=== PATIENT | male | born 1940 | race Caucasian/White ===

== ENCOUNTER 2018-06-15 15:53 | Inpatient (IN) ==
[2018-06-15] MEDS ORDERED: Ondansetron 4 MG/2 ML VIAL IVP PRN (17:50)
[2018-06-15] MEDS ORDERED: *HR* Promethazine 25 MG/ML VIAL IVP PRN (17:50)
[2018-06-15] MEDS ORDERED: traMADol 50 MG TABLET PO PRN (17:50)
[2018-06-15] MEDS ORDERED: Acetaminophen 325 MG TABLET PO PRN (17:50)
[2018-06-15] MEDS ORDERED: Naloxone 0.4 MG/ML INJ IVP PRN (17:50)
[2018-06-15] MEDS ORDERED: Fluticasone Propionate Nasal 50 MCG/SPRAY BOTTLE NS PRN (17:54)
--- NOTE | 2018-06-15 18:27 | Internal Med History&Physical ---
Date of Encounter: 06/15/18 Time of Encounter: 18:19 Internal Medicine - H&P: HPI Chief complaint: Weight loss, failure to thrive Admitted From: Emergency Dept Plans for Post Hospital Care: Home History of present illness: Mr. Kelly is a 78 year old male with known PMH of paroxysmal Aflutter on Xarelto for anti coag, HTN, HLD, Chronic B12 def, Parkinson disease and diastolic CHF pt who presented to [facility] [place] with worsening loss of appetite. significant weight loss 30 lbs in 6 weeks and lower abdomen pain. He does c/o severe weakness, and lethargy. Denied any CP / SOB. Denied any melena / dark colored stool / blood in stool. His CT of Abd showed cholelithiasis but no acute cholecystitis, and colonic mass in the region of the splenic flexure suspicious for malignancy. Patient was transferred to our hospital for further care. Surgery Dr. Valderrama is already consulted by [facility] attending. Past Med Surg Social Fam HX - Past Medical History Medical history: atrial fibrillation, hyperlipidemia, hypertension, other Additional medical history: PARKINSONS Psychiatric history: bipolar - Past Surgical History Surgical History: herniorrhaphy Additional surgical history: SMASH INJURY TO RIGHT THUMB - Social History Smoking Status: Former smoker Smokeless Tobacco Status: No Alcohol use: none Drug use: none - Family History Mother Living Status: Age at : 90 Hx Family Cardiac Disorders: Yes Hx Family Respiratory Disorders: Yes Father History Unknown: Yes Internal Medicine - H&P: Meds Carbidopa/Levodopa ER 50/200 [Sinemet ER 50-200 Tab] 25 - 100 mg PO QID [History] Cartia Xt 120 mg PO DAILY 03/23/16 [History] Divalproex (24 HR) [Depakote ER (24 HR)] 250 mg PO HS 03/23/16 [History] Divalproex (24 HR) [Depakote ER (24 HR)] 500 mg PO BID 03/23/16 [History] Fexofenadine HCl 60 mg PO BID 03/23/16 [History] Fluticasone Propionate Nasal [Flonase] 1 spray NS DAILY PRN 03/23/16 [History] Levothyroxine [Synthroid] 25 mcg PO 0630 03/23/16 [History] Lovastatin [Altoprev] 20 mg PO DAILY 03/23/16 [History] Omeprazole 40 mg PO DAILY 03/23/16 [History] Quetiapine Fumarate [Seroquel] 100 mg PO HS 03/23/16 [History] Rivaroxaban [Xarelto] 20 mg PO 1700 03/23/16 [History] Ascorbate Calcium [Vitamin C] 250 mg PO BID 11/01/17 [History] Cyanocobalamin (Vitamin B-12) [Vitamin B12] 1,000 mcg PO DAILY #30 tablet [Rx] Bumetanide [Bumex] 1 mg PO DAILY #30 tablet 02/16/18 [Rx] Digoxin [Lanoxin] 0.25 mg PO DAILY #30 tablet 02/16/18 [Rx] Potassium Chloride 10 meq PO DAILY #30 tab.er.prt 02/16/18 [Rx] 3 Allergy/AdvReac Type Severity Reaction Status Date / Time latex Allergy Rash Verified 06/15/18 13:59 Penicillins Allergy Difficulty Verified 06/15/18 13:59 Breathing ivp dye Allergy See Uncoded 06/15/18 13:59 Comments All Systems PM: A 10-system review of systems was performed and is negative for pertinent findings except as documented above in the HPI. Review of systems: All the systems are reviewed everything is benign except the systems and symptoms I mentioned in the history of present illness - Constitutional Vitals: Temp Pulse Resp BP Pulse Ox 98.5 F 78 15 108/57 97 06/15/18 17:52 06/15/18 17:52 06/15/18 17:52 06/15/18 17:52 06/15/18 17:52 General appearance: Present: cooperative, A&O X 3, answers questions appropriately Exam: Looks very weak and lethargic - Head Head exam: Present: atraumatic, normal inspection - Neck Neck exam general surgery: Present: supple - Respiratory Respiratory exam: Present: decreased breath sounds. Absent: rales, respiratory distress, rhonchi, wheezes - Cardiovascular Cardiovascular exam: Present: RRR, +S1, +S2. Absent: tachycardia - GI/Abdominal GI/Abdominal exam: Present: normal bowel sounds, soft, tenderness (Lower abdomen region). Absent: distended, guarding, hepatomegaly, rebound, rigid - Extremities Exam Extremities exam: Absent: calf tenderness, pedal edema, tenderness - Back Exam Back exam: Absent: CVA tenderness (L), CVA tenderness (R) - Neurological Exam Neurological exam: Present: alert, oriented X3 - Psychiatric Psychiatric exam: Present: normal affect, normal mood - Skin Skin exam: Absent: rash - Assessment and plan (1) Colonic mass Current Visit: No Status: Acute Assessment and plan: Admit the patient into MedSurg concerning for malignancy NPO after midnight for possible colonoscopy in the morning IV hydration surgery already consulted analgesics as needed symptomatic and supportive care held anticoagulation Xarelto for possible surgical procedure in the morning (2) Failure to thrive Current Visit: Yes Status: Acute Assessment and plan: Mostly due to colonic mass will check pre-albumin, B12, folic acid street light wirer consulted started him on Marinol Qualifiers: Failure to thrive age range: in adult Qualified Code(s): R62.7 - Adult failure to thrive (3) Paroxysmal atrial flutter Current Visit: No Status: Acute Assessment and plan: Rate controlled with the digoxin held anticoagulation Xarelto for possible surgical procedure in the morning (4) Anorexia Current Visit: No Status: Acute (5) Weight loss Current Visit: No Status: Acute (6) Hypertension Current Visit: No Status: Chronic Assessment and plan: Resumed home medication Qualifiers: Hypertension type: essential hypertension Qualified Code(s): I10 - Essential (primary) hypertension (7) Hypothyroidism Current Visit: No Status: Chronic Assessment and plan: Resumed home medication Qualifiers: Hypothyroidism type: unspecified Qualified Code(s): E03.9 - Hypothyroidism , unspecified (8) Parkinson disease Current Visit: Yes Status: Acute Assessment and plan: Stable resumed home medication - Time Spent With Patient Total time spent is greater than 50% in coordination of care (as documented) at patient's floor/unit and/or counseling patient:
[2018-06-15] MEDS ORDERED: 0.9 % Sodium Chloride 1,000 ML IVC SCH (18:30)
[2018-06-15] MEDS ORDERED: FEXOFENADINE HCL 60 MG PO SCH (21:00)
[2018-06-15] MEDS ORDERED: Divalproex (24 HR) 250 MG TABLET PO SCH (21:00)
[2018-06-15] MEDS ORDERED: Divalproex (24 HR) 500 MG TABLET PO SCH (21:00)
[2018-06-15] MEDS: Ascorbic Acid 500 MG TABLET PO SCH (21:03)
[2018-06-15] MEDS: Divalproex (24 HR) 250 MG TABLET PO SCH (21:04)
[2018-06-15] MEDS: Divalproex (24 HR) 500 MG TABLET PO SCH (21:04)
[2018-06-15] MEDS ORDERED: Polyethylene Glycol 3350 255 GM POWDER PO ONE (21:44)
--- NOTE | 2018-06-16 00:21 | General Surgery Consult Note ---
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 Kelly is a 78 year old male with known PMH of paroxysmal Aflutter on Xarelto for anti coag, HTN, HLD, diastolic CHF pt who has experienced unexplained weight loss for the past 3 months. Per the patient he has lost 50lbs unintentially. In addition he simply feels weak. he also also anorexia. No reports of fevers, chills, nausea, vomiting, blood bowel movements/rectal bleeding, nor any signficant pain to suggest obstruction. A CT scan was obtained, which was reviewed and evaluated by me, which demonstrates what could be a mass in the splenic flexure. Surgery was consulted for management recommendations. Of note, the patient has never had a colonoscopy before. Past Med Surg Social Fam HX - Past Medical History Medical history: atrial fibrillation, hyperlipidemia, hypertension, other Additional medical history: PARKINSONS Psychiatric history: bipolar - Past Surgical History Surgical History: herniorrhaphy Additional surgical history: SMASH INJURY TO RIGHT THUMB - Social History Smoking Status: Former smoker Smokeless Tobacco Status: No Alcohol use: none Drug use: none - Family History Mother Living Status: Age at : 90 Hx Family Cardiac Disorders: Yes Hx Family Respiratory Disorders: Yes Father History Unknown: Yes Medications and Allergies Carbidopa/Levodopa ER 50/200 [Sinemet ER 50-200 Tab] 1 tab PO 03/23/16 [History] Divalproex (24 HR) [Depakote ER (24 HR)] 1,000 mg PO HS 03/23/16 [History] Divalproex (24 HR) [Depakote ER (24 HR)] 250 mg PO HS 03/23/16 [History] Fexofenadine HCl 60 mg PO BID 03/23/16 [History] Fluticasone Propionate Nasal [Flonase] 1 spray NS DAILY PRN 03/23/16 [History] Levothyroxine [Synthroid] 25 mcg PO 0630 03/23/16 [History] Lovastatin [Altoprev] 20 mg PO DAILY 03/23/16 [History] Omeprazole 40 mg PO DAILY 03/23/16 [History] Ascorbate Calcium [Vitamin C] 250 mg PO BID 11/01/17 [History] Cyanocobalamin (Vitamin B-12) [Vitamin B12] 1,000 mcg PO DAILY #30 tablet [Rx] Bumetanide [Bumex] 1 mg PO DAILY #30 tablet 02/16/18 [Rx] Digoxin [Lanoxin] 0.25 mg PO DAILY #30 tablet 02/16/18 [Rx] Potassium Chloride 10 meq PO DAILY #30 tab.er.prt 02/16/18 [Rx] Carbidopa/Levodopa [Carbidopa-Levodopa 25-100 Tab] 1 tab PO 06/15/18 [History] Diltiazem HCl [Diltiazem 24Hr Cd] 120 mg PO DAILY 06/15/18 [History] Quetiapine Fumarate [SEROquel] 100 mg PO HS 06/15/18 [History] Rivaroxaban [Xarelto] 20 mg PO 1700 06/15/18 [History] 3 Allergy/AdvReac Type Severity Reaction Status Date / Time latex Allergy Rash Verified 06/15/18 13:59 Penicillins Allergy Difficulty Verified 06/15/18 13:59 Breathing ivp dye Allergy See Uncoded 06/15/18 13:59 Comments Review of Systems All systems PM: 12 point ROS negative besides HPI findings. General Surgery Exam Initial Vital Signs Pulse Resp BP Pulse Ox 45 18 100/49 97 06/15/18 11:05 06/15/18 11:05 06/15/18 11:05 06/15/18 11:05 - General physical appearance no distress, chronically ill - Eyes normal ocular movement - ENT CN 2-12 grossly intact - Neck no masses - Respiratory normal expansion, normal respiratory effort - Cardiovascular Cardiovascular exam: Present: RRR - Abdomen Abdomen general surgery: Present: soft, non tender - Integumentary Integumentary general surgery: Present: warm and dry - Neurologic Present: CN 2-12 grossly intact - Musculoskeletal Present: normal posture - Psychiatric Psychiatric general surgery: Present: A&Ox3 Exam Initial Vital Signs Pulse Resp BP Pulse Ox 45 18 100/49 97 06/15/18 11:05 06/15/18 11:05 06/15/18 11:05 06/15/18 11:05 Results - Labs All other labs normal. - Imaging CT scan - abdomen: report reviewed, image reviewed CT scan - pelvis: report reviewed, image reviewed Consult Discharge Plan - Plan Referrals: Maryan Quinonez, ADVERTISING DESIGNER [Primary Care Provider] -
[2018-06-16 04:50] LABS: Hematocrit 40.3 % (37.5-50.1); Hemoglobin 13.8 g/dL (12.9-16.9); Mean Corpuscular HGB Conc 34.2 g/dL (31.6-35.5); Mean Corpuscular Hemoglobin 34.9 pg (28.0-33.3); Mean Platelet Volume 10.1 fL (9.4-12.4); Platelet Count 146 K/mcL (140-400); Red Blood Count 3.95 M/mcL (4.19-5.50); Red Cell Distribution Width 13.3 % (11.5-14.5)
[2018-06-16 04:56] LABS: INR 1.1; Prothrombin Time 12.2 Seconds (9.4-12.1)
[2018-06-16 05:09] LABS: Prealbumin 7.3 mg/dL (17.0-34.0)
[2018-06-16 05:16] LABS: Alanine Aminotransferase < 3 Units/L (7-52); Albumin 3.1 g/dL (3.5-5.7); Albumin/Globulin Ratio 1.3 (1.1-2.2); Alkaline Phosphatase 51 Units/L (34-104); Aspartate Amino Transferase 10 Units/L (13-39); BUN/Creatinine Ratio 22 (6-26); Bilirubin,Total 0.6 mg/dL (0.3-1.0); Blood Urea Nitrogen 15 mg/dL (8-23); Calcium 8.3 mg/dL (8.6-10.3); Carbon Dioxide 40 mEq/L (23-29); Chloride 93 mEq/L (98-107); Chol/HDL Ratio 3.8 (0-4.9); Cholesterol 122 mg/dL (< 200); Globulin 2.4 g/dL (2.4-3.5); Glucose 139 mg/dL (70-105); HDL Cholesterol 32 mg/dL (40-59); LDL Cholesterol,Calculated 68 mg/dL (0-99); Osmolality,Calculated 289 (280-300); Phosphorous 2.7 mg/dL (2.7-4.5); Sodium 138 mEq/L (136-145); Total Protein 5.5 g/dL (6.4-8.9); Triglycerides 112 mg/dL (< 150); eGFR For Non-African Americans > 60 (> 60)
[2018-06-16 05:32] LABS: Folate 11.2 ng/mL (3.0-16.0)
[2018-06-16] MEDS: Levothyroxine 25 MCG TABLET PO SCH (06:41)
[2018-06-16] MEDS ORDERED: Diltiazem CD (24hr) 120 MG CAPSULE PO SCH (09:00)
[2018-06-16] MEDS ORDERED: *HR* Digoxin 0.25 MG TABLET PO SCH (09:00)
[2018-06-16] MEDS: Loratadine 10 MG TABLET PO SCH (09:38)
[2018-06-16] MEDS: Ascorbic Acid 500 MG TABLET PO SCH ×2 (09:38→20:25)
[2018-06-16] MEDS: Cyanocobalamin (B-12) 1,000 MCG TABLET PO SCH (09:38)
--- NOTE | 2018-06-16 16:54 | Internal Med Progress Note ---
Hospitalist Progress Note - Encounter Date of Encounter: 06/16/18 Time of Encounter: 11:00 - Subjective Interval History: Pt was seen and examined at bed side. He still feels very weak and lethargic. Denied any CP. - Exam Vitals: Temp Pulse Resp BP Pulse Ox 98.9 F 53 20 106/67 95 06/16/18 14:23 06/16/18 14:23 06/16/18 14:23 06/16/18 14:23 06/16/18 14:23 Exam: Looks very weak and lethargic Gen: Alert, awake, Oriented to time,place and person Chest: Diminished breath sounds B/L, No wheezing, No crackles, No rales Heart: S1S2+ RRR No murmurs Abd: Soft, NT, BS +, No organomegaly Ext: No edema, pulses are palpable, No calf tenderness Neuro : Benign findings Skin: No rash. - Assessment and Plan (1) Colonic mass Current Visit: No Status: Inactive Assessment and Plan: concerning for malignancy NPO Scheduled for colonoscopy in the morning IV hydration surgery on board analgesics as needed symptomatic and supportive care held anticoagulation Xarelto for possible surgical procedure in the morning (2) Failure to thrive Current Visit: Yes Status: Acute Assessment and Plan: Mostly due to colonic mass B12 and folic acid - WNL Pre albumin - 7.3 shingle cutter consulted started him on Marinol (3) Paroxysmal atrial flutter Current Visit: No Status: Acute Assessment and Plan: held digoxin since he is in sinus andrae cont on tele held anticoagulation Xarelto for possible surgical procedure in the morning (4) Anorexia Current Visit: No Status: Inactive (5) Weight loss Current Visit: No Status: Inactive (6) Hypertension Current Visit: No Status: Chronic Assessment and Plan: Held home medication since his BP running low (7) Hypothyroidism Current Visit: No Status: Chronic Assessment and Plan: Resumed home medication (8) Parkinson disease Current Visit: Yes Status: Acute Assessment and Plan: Stable resumed home medication (9) Bradycardia Current Visit: Yes Status: Acute Assessment and Plan: checked dig level - 1.6 cont on tele for now cont close monitoring - Time Spent with Patient Total time spent is greater than 50% in coordination of care (as documented) at patient's floor/unit and/or counseling patient: Internal Medicine: Result - Labs CBC & Chem 7: 06/16/18 04:34 08/24/18 04:34 Labs: Short CBC 06/16/18 Range/Units 04:34 WBC 7.7 (4.3-11.1) K/mcL Hgb 13.8 (12.9-16.9) g/dL Hct 40.3 (37.5-50.1) % Plt Count 146 (140-400) K/mcL BMP 06/16/18 04:34 Sodium 138 Potassium 3.0 L Chloride 93 L Carbon Dioxide 40 H* BUN 15 Creatinine 0.69 L Glucose 139 H Calcium 8.3 L Liver Function 06/16/18 Range/Units 04:34 Total Bilirubin 0.6 (0.3-1.0) mg/dL AST 10 L (13-39) Units/L ALT < 3 L (7-52) Units/L Alkaline Phosphatase 51 (34-104) Units/L Albumin 3.1 L (3.5-5.7) g/dL - ABG Interpretation ABG results: PT/INR, D-dimer PT 12.2 Seconds (9.4-12.1) H 06/16/18 04:34 - VTE Documentation of Mechanical Device: Intermittent pneumatic compression device Consult Discharge Plan - Plan Referrals: Maryan Quinonez, NEWS PRODUCTION SUPERVISOR [Primary Care Provider] - (2) Failure to thrive Qualifiers: Failure to thrive age range: in adult Qualified Code(s): R62.7 - Adult failure to thrive (6) Hypertension Qualifiers: Hypertension type: essential hypertension Qualified Code(s): I10 - Essential (primary) hypertension (7) Hypothyroidism Qualifiers: Hypothyroidism type: unspecified Qualified Code(s): E03.9 - Hypothyroidism, unspecified
[2018-06-16] MEDS ORDERED: *HR* Rivaroxaban 10 MG TABLET PO SCH (17:00)
[2018-06-16] MEDS: 0.9 % Sodium Chloride 1,000 ML IVC SCH (20:24)
[2018-06-16] MEDS: Divalproex (24 HR) 250 MG TABLET PO SCH (20:24)
[2018-06-16] MEDS: Divalproex (24 HR) 500 MG TABLET PO SCH (20:25)
[2018-06-17 03:32] LABS: Basophils # 0.1 K/mcL (0.0-0.2); Basophils % 1.3 %; Eosinophils # 0.2 K/mcL (0.0-0.6); Eosinophils % 2.6 %; Hematocrit 34.6 % (37.5-50.1); Immature Granulocytes % 3.5 % (0-4); Lymphocytes # 1.8 K/mcL (0.6-4.6); Mean Corpuscular HGB Conc 33.8 g/dL (31.6-35.5); Mean Corpuscular Volume 100.6 fL (83.0-100.0); Mean Platelet Volume 9.8 fL (9.4-12.4); Monocytes # 0.7 K/mcL (0.0-1.3); Monocytes % 12.2 %; Neutrophils # 3.1 K/mcL (1.6-8.9); Platelet Count 143 K/mcL (140-400); Red Blood Count 3.44 M/mcL (4.19-5.50); Red Cell Distribution Width 13.7 % (11.5-14.5); Segmented Neutrophils % 51.4 %
[2018-06-17 03:40] LABS: Hemoglobin 11.7 g/dL (12.9-16.9)
[2018-06-17 03:50] LABS: BUN/Creatinine Ratio 15 (6-26); Blood Urea Nitrogen 8 mg/dL (8-23); Calcium 8.1 mg/dL (8.6-10.3); Carbon Dioxide 38 mEq/L (23-29); Chloride 100 mEq/L (98-107); Glucose 86 mg/dL (70-105); Magnesium 1.9 mg/dL (1.6-2.6); Osmolality,Calculated 292 (280-300); Potassium 3.3 mEq/L (3.5-5.1); Sodium 142 mEq/L (136-145); eGFR For Non-African Americans > 60 (> 60)
[2018-06-17] MEDS: Levothyroxine 25 MCG TABLET PO SCH (06:36)
--- NOTE | 2018-06-17 09:26 | Electrocardiograph Report ---
[place] [id number] Test Date: 2018-06-16 Pat Name: Juan J Kelly Department: 115 Room: 3A21 Gender: M Microbiology Director: : 1940 Requested By: Jones Randall Order Number: [id number] Reading MD: Rodrigo Godoy Measurements Intervals [place] Rate: 43 P: -53 NV: 195 QRS: 6 QRSD: 96 T: 28 QT: 394 QTc: 338 Interpretive Statements Sinus bradycardia with sinus arrhythmia and a first degree AV block Nonspecific ST-T changes Electronically Signed On 06-17-2018 9:24:40 EDT by Rodrigo Godoy
[2018-06-17] MEDS: Cyanocobalamin (B-12) 1,000 MCG TABLET PO SCH (09:37)
[2018-06-17] MEDS: Ascorbic Acid 500 MG TABLET PO SCH ×2 (09:37→20:13)
[2018-06-17] MEDS: Loratadine 10 MG TABLET PO SCH (09:37)
[2018-06-17] MEDS ORDERED: *HR* Midazolam HCl 5 MG/5 ML VIAL IVP ONE ×2 (11:40→12:00)
[2018-06-17] MEDS ORDERED: *HR* FentaNYL (PF) 100 MCG/2 ML VIAL ONE (11:41)
[2018-06-17] MEDS ORDERED: *HR* FentaNYL (PF) 100 MCG/2 ML VIAL IVP ONE (12:00)
[2018-06-17] MEDS ORDERED: Simethicone 40 MG/0.6 ML MLS IR ONE (12:00)
--- NOTE | 2018-06-17 12:00 | Pre-Sedation Evaluation ---
Pre-sedation evaluation - Pre-sedation checklist Date of procedure: 06/17/18 Recent Vitals: Last Vital Signs Temp 98.4 F 06/17/18 11:20 Pulse 58 06/17/18 11:20 Resp 18 06/17/18 11:20 BP 105/63 06/17/18 11:20 Pulse Ox 98 06/17/18 11:20 H&P (including ROS) documented in medical record: Yes Previous reaction to sedatives/anesthetics: No Dietary Status: NPO after Midnight Airway Assessment: Patient can open mouth completely, TMJ function normal Dentition: No loose teeth or bridges Possible difficult airway: No ASA Classification *see protocol: CLASS III-Severe systemic disease Cardiac Registry (Cardio Only) - Functional Capacity - Clincal Frailty Scale
--- NOTE | 2018-06-17 13:31 | Internal Med Progress Note ---
Hospitalist Progress Note - Encounter Date of Encounter: 06/17/18 Time of Encounter: 13:31 - Subjective Interval History: Pt was seen and examined at bed side. He still feels very weak and lethargic. Denied any CP / SOB. Scheduled for colonoscopy today. Abd pain tolerable with meds. - Exam Vitals: Temp Pulse Resp BP Pulse Ox 98.7 F 62 16 120/67 91 06/17/18 12:01 06/17/18 12:27 06/17/18 12:27 06/17/18 12:27 06/17/18 12:27 Exam: Looks very weak and lethargic Gen: Alert, awake, Oriented to time,place and person Chest: Diminished breath sounds B/L, No wheezing, No crackles, No rales Heart: S1S2+ bradycardia, No murmurs Abd: Soft, NT, BS +, No organomegaly Ext: No edema, pulses are palpable, No calf tenderness Neuro : Benign findings Skin: No rash. - Assessment and Plan (1) Colonic mass Current Visit: No Status: Inactive Assessment and Plan: concerning for malignancy cont NPO Scheduled for colonoscopy today IV hydration surgery on board analgesics as needed symptomatic and supportive care held anticoagulation Xarelto for colonoscopy today (2) Bradycardia Current Visit: Yes Status: Acute Assessment and Plan: checked dig level - 1.6 cont on tele for now continue holding digoxin and Cardizem reviewed EKG from yesterday which showed first-degree AV block with prolonged MN interval, no acute ischemic changes noticed cont close monitoring (3) Failure to thrive Current Visit: Yes Status: Acute Assessment and Plan: Mostly due to colonic mass B12 and folic acid - WNL Pre albumin - 7.3 endless belt finisher consulted started him on Marinol (4) Paroxysmal atrial flutter Current Visit: No Status: Acute Assessment and Plan: held digoxin and cardizem since he is in sinus andrae cont on tele held anticoagulation Xarelto for possible surgical procedure (5) Anorexia Current Visit: No Status: Inactive (6) Weight loss Current Visit: No Status: Inactive (7) Hypertension Current Visit: No Status: Chronic Assessment and Plan: Held home medication since his BP running low (8) Hypothyroidism Current Visit: No Status: Chronic Assessment and Plan: Resumed home medication (9) Parkinson disease Current Visit: Yes Status: Acute Assessment and Plan: Stable resumed home medication - Time Spent with Patient Total time spent is greater than 50% in coordination of care (as documented) at patient's floor/unit and/or counseling patient: Internal Medicine: Result - Labs CBC & Chem 7: 06/17/18 03:18 06/17/18 03:18 Labs: Short CBC 06/17/18 Range/Units 03:18 WBC 6.1 (4.3-11.1) K/mcL Hgb 11.7 L D (12.9-16.9) g/dL Hct 34.6 L (37.5-50.1) % Plt Count 143 (140-400) K/mcL Neutrophils # 3.1 (1.6-8.9) K/mcL BMP 06/17/18 03:18 Sodium 142 Potassium 3.3 L Chloride 100 Carbon Dioxide 38 H BUN 8 Creatinine 0.53 L Glucose 86 Calcium 8.1 L - ABG Interpretation ABG results: PT/INR, D-dimer PT 12.2 Seconds (9.4-12.1) H 06/16/18 04:34 - VTE Documentation of Mechanical Device: Intermittent pneumatic compression device Consult Discharge Plan - Plan Referrals: Maryan Quinonez, WIRE COILER MACHINE OPERATOR [Primary Care Provider] - (3) Failure to thrive Qualifiers: Failure to thrive age range: in adult Qualified Code(s): R62.7 - Adult failure to thrive (7) Hypertension Qualifiers: Hypertension type: essential hypertension Qualified Code(s): I10 - Essential (primary) hypertension (8) Hypothyroidism Qualifiers: Hypothyroidism type: unspecified Qualified Code(s): E03.9 - Hypothyroidism, unspecified
[2018-06-17] MEDS: 0.9 % Sodium Chloride 1,000 ML IVC SCH (15:36)
[2018-06-17] MEDS: Carbidopa/Levodopa 25/100 TABLET PO SCH ×2 (15:36→20:14)
[2018-06-17] MEDS: Divalproex (24 HR) 250 MG TABLET PO SCH (20:13)
[2018-06-17] MEDS: Divalproex (24 HR) 500 MG TABLET PO SCH (20:14)
[2018-06-18] MEDS: 0.9 % Sodium Chloride 1,000 ML IVC SCH (01:08)
[2018-06-18] MEDS: Levothyroxine 25 MCG TABLET PO SCH (06:37)
[2018-06-18 07:23] LABS: Hematocrit 38.5 % (37.5-50.1); Hemoglobin 12.8 g/dL (12.9-16.9); Mean Corpuscular HGB Conc 33.2 g/dL (31.6-35.5); Mean Corpuscular Hemoglobin 34.2 pg (28.0-33.3); Mean Corpuscular Volume 102.9 fL (83.0-100.0); Mean Platelet Volume 10.2 fL (9.4-12.4); Platelet Count 175 K/mcL (140-400); Red Blood Count 3.74 M/mcL (4.19-5.50); Red Cell Distribution Width 13.8 % (11.5-14.5)
[2018-06-18 07:45] LABS: BUN/Creatinine Ratio 15 (6-26); Blood Urea Nitrogen 8 mg/dL (8-23); Calcium 8.1 mg/dL (8.6-10.3); Carbon Dioxide 34 mEq/L (23-29); Chloride 102 mEq/L (98-107); Glucose 81 mg/dL (70-105); Osmolality,Calculated 291 (280-300); Potassium 3.4 mEq/L (3.5-5.1); Sodium 142 mEq/L (136-145); eGFR For Non-African Americans > 60 (> 60)
[2018-06-18 08:24] LABS: Lymphocytes # 2.4 K/mcL (0.6-4.6); Monocytes # 0.3 K/mcL (0.0-1.3); Neutrophils # 2.9 K/mcL (1.6-8.9)
[2018-06-18 08:25] LABS: Anisocytosis 1+ (Not Present); Platelet Estimate Normal (Normal)
[2018-06-18] MEDS: Ascorbic Acid 500 MG TABLET PO SCH ×2 (09:16→20:51)
[2018-06-18] MEDS: Cyanocobalamin (B-12) 1,000 MCG TABLET PO SCH (09:17)
[2018-06-18] MEDS: Carbidopa/Levodopa 25/100 TABLET PO SCH ×4 (09:17→20:51)
[2018-06-18] MEDS: Loratadine 10 MG TABLET PO SCH (09:17)
--- NOTE | 2018-06-18 13:42 | Internal Med Progress Note ---
Hospitalist Progress Note - Encounter Date of Encounter: 06/18/18 Time of Encounter: 11:00 - Subjective Interval History: Pt was seen and examined at bed side. He still feels very weak and lethargic. Denied any CP / SOB. Had colonoscopy y/d. Abd pain tolerable with meds. He states his appetite little better now. - Exam Vitals: Temp Pulse Resp BP Pulse Ox 98.4 F 54 14 129/56 97 06/18/18 07:14 06/18/18 07:14 06/18/18 07:14 06/18/18 07:14 06/18/18 07:14 Exam: Looks very weak and lethargic Gen: Alert, awake, Oriented to time,place and person Chest: Diminished breath sounds B/L, No wheezing, No crackles, No rales Heart: S1S2+ bradycardia, No murmurs Abd: Soft, NT, BS +, No organomegaly Ext: No edema, pulses are palpable, No calf tenderness Neuro : Benign findings Skin: No rash. - Assessment and Plan (1) Colonic mass Current Visit: No Status: Inactive Assessment and Plan: s/p Colonoscopy showed pseudomembranous collitis at sigmoid colon region and 3 mm polyp no colonic mass noticed Tolerating diet well Talked to our radiologist who thinks pt definitely have some activity going at splenic flexion region focal colitis vs malignancy radiology suggested PET CT as an out pt will talk to Dr. Moreira about colonoscopy findings and CT report surgery on board analgesics as needed symptomatic and supportive care resume anticoagulation Xarelto (2) Bradycardia Current Visit: Yes Status: Acute Assessment and Plan: checked dig level - 1.6 cont on tele for now continue holding digoxin and Cardizem reviewed EKG which showed first-degree AV block with prolonged PA interval, no acute ischemic changes noticed cont close monitoring (3) Failure to thrive Current Visit: Yes Status: Acute Assessment and Plan: Mostly due to colonic mass B12 and folic acid - WNL Pre albumin - 7.3 day habilitation supervisor consulted started him on Marinol (4) Paroxysmal atrial flutter Current Visit: No Status: Acute Assessment and Plan: held digoxin and cardizem since he is in sinus andrae cont on tele held anticoagulation Xarelto for possible surgical procedure (5) Anorexia Current Visit: No Status: Inactive (6) Weight loss Current Visit: No Status: Inactive (7) Hypertension Current Visit: No Status: Chronic Assessment and Plan: Held home medication since his BP running low (8) Hypothyroidism Current Visit: No Status: Chronic Assessment and Plan: Resumed home medication (9) Parkinson disease Current Visit: Yes Status: Acute Assessment and Plan: Stable resumed home medication - Time Spent with Patient Total time spent is greater than 50% in coordination of care (as documented) at patient's floor/unit and/or counseling patient: Internal Medicine: Result - Labs CBC & Chem 7: 06/18/18 06:22 06/18/18 06:22 Labs: Short CBC 06/18/18 Range/Units 06:22 WBC 5.6 (4.3-11.1) K/mcL Hgb 12.8 L (12.9-16.9) g/dL Hct 38.5 (37.5-50.1) % Plt Count 175 (140-400) K/mcL Neutrophils # 2.9 (1.6-8.9) K/mcL BMP 06/18/18 06:22 Sodium 142 Potassium 3.4 L Chloride 102 Carbon Dioxide 34 H BUN 8 Creatinine 0.52 L Glucose 81 Calcium 8.1 L - ABG Interpretation ABG results: PT/INR, D-dimer PT 12.2 Seconds (9.4-12.1) H 06/16/18 04:34 - VTE Documentation of Mechanical Device: Intermittent pneumatic compression device Consult Discharge Plan - Plan Referrals: Maryan Quinonez, FEDERAL AGENT [Primary Care Provider] - (3) Failure to thrive Qualifiers: Failure to thrive age range: in adult Qualified Code(s): R62.7 - Adult failure to thrive (7) Hypertension Qualifiers: Hypertension type: essential hypertension Qualified Code(s): I10 - Essential (primary) hypertension (8) Hypothyroidism Qualifiers: Hypothyroidism type: unspecified Qualified Code(s): E03.9 - Hypothyroidism, unspecified
[2018-06-18] MEDS ORDERED: *HR* Rivaroxaban 10 MG TABLET PO SCH (17:00)
[2018-06-18] MEDS: Divalproex (24 HR) 500 MG TABLET PO SCH (20:50)
[2018-06-18] MEDS: Divalproex (24 HR) 250 MG TABLET PO SCH (20:51)
[2018-06-19] MEDS: Levothyroxine 25 MCG TABLET PO SCH (06:22)
[2018-06-19] MEDS: Cyanocobalamin (B-12) 1,000 MCG TABLET PO SCH (08:01)
[2018-06-19] MEDS: Ascorbic Acid 500 MG TABLET PO SCH (08:01)
[2018-06-19] MEDS: Loratadine 10 MG TABLET PO SCH (08:02)
--- NOTE | 2018-06-19 13:27 | Discharge Summary ---
- NOTES TO OUTPATIENT PROVIDER Notes to Outpatient Provider: f/u with surgery Dr. Moreira in 3-5 days. Scheduled for out pt X ray with Barium enema in one week as scheudled by surgery Dr. Moreira Orders not resulted at time of discharge: Pending orders 06/17/18 12:33 Surgical Pathology [PTH] Routine Date of Encounter: 06/19/18 Time of Encounter: 13:24 - Discharge Diagnosis (1) Colonic mass Priority: Primary Status: Inactive (2) Bradycardia Priority: Secondary Status: Acute (3) Failure to thrive Priority: Secondary Status: Acute Qualifiers: Failure to thrive age range: in adult Qualified Code(s): R62.7 - Adult failure to thrive (4) Paroxysmal atrial flutter Priority: Secondary Status: Acute (5) Anorexia Priority: Secondary Status: Inactive (6) Weight loss Priority: Secondary Status: Inactive (7) Hypertension Priority: Secondary Status: Chronic Qualifiers: Hypertension type: essential hypertension Qualified Code(s): I10 - Essential (primary) hypertension (8) Hypothyroidism Priority: Secondary Status: Chronic Qualifiers: Hypothyroidism type: unspecified Qualified Code(s): E03.9 - Hypothyroidism , unspecified (9) Parkinson disease Priority: Secondary Status: Acute Hospital course: Mr. Kelly is a 78 year old male with known PMH of paroxysmal Aflutter on Xarelto for anti coag, HTN, HLD, Chronic B12 def, Parkinson disease and diastolic CHF pt who presented to [facility] ER with worsening loss of appetite. significant weight loss 30 lbs in 6 weeks and lower abdomen pain. He does c/o severe weakness, and lethargy. Denied any CP / SOB. Denied any melena / dark colored stool / blood in stool. His CT of Abd showed cholelithiasis but no acute cholecystitis, and colonic mass in the region of the splenic flexure suspicious for malignancy. Patient was transferred to our hospital for further care. Pt was admitted in the hospital and started him on symptomatic and supportive care. He was seen by surgery Dr. 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 Talked to our radiologist who thinks pt definitely have some activity going on at splenic flexion region focal colitis vs malignancy. Radiology suggested PET CT as an out pt. However Surgery Dr. Velasco would like to do out pt barium enema X ray Abd and close f/u with him. He does have asymptomatic bradycardia too, so d/c his Digoxin and Cardizem. For his loss of appetite started him on Marinol here. - Time Spent with Patient Total time spent providing and/or coordinating discharge services: - Discharge Medications Prescriptions: Dronabinol [Marinol] 2.5 mg PO BID 30 Days #60 capsule Home Medications: Divalproex (24 HR) [Depakote ER (24 HR)] 1,000 mg PO HS 03/23/16 [History] Divalproex (24 HR) [Depakote ER (24 HR)] 250 mg PO HS 03/23/16 [History] Levothyroxine [Synthroid] 25 mcg PO 0630 03/23/16 [History] Omeprazole 40 mg PO DAILY 03/23/16 [History] Ascorbate Calcium [Vitamin C] 250 mg PO BID 11/01/17 [History] Cyanocobalamin (Vitamin B-12) [Vitamin B12] 1,000 mcg PO DAILY #30 tablet [Rx] Carbidopa/Levodopa [Carbidopa-Levodopa 25-100 Tab] 1 tab PO QID 06/15/18 [ History] Quetiapine Fumarate [Seroquel] 100 mg PO HS 06/15/18 [History] Rivaroxaban [Xarelto] 20 mg PO 1700 06/15/18 [History] Latanoprost [Xalatan] 2.5 ml BOTH EYES DAILY 06/16/18 [History] Lovastatin [Mevacor] 20 mg PO HS 06/16/18 [History] Montelukast [Singulair] 10 mg PO DAILY 06/16/18 [History] Dronabinol [Marinol] 2.5 mg PO BID 30 Days #60 capsule 06/19/18 [Rx] Allergies/Adverse Reactions: 3 Allergy/AdvReac Type Severity Reaction Status Date / Time latex Allergy Rash Verified 06/15/18 13:59 Penicillins Allergy Difficulty Verified 06/15/18 13:59 Breathing ivp dye Allergy See Uncoded 06/15/18 13:59 Comments Date of admission: 06/15/18 17:50 Primary care physician: Maryan Quinonez CNP Consults: 06/15/18 17:53 Consult to Physical Therapy [CONS] Routine Comment: Evaluate, develop and implement POC Reason for Consult: Deconditioning Does patient have active BEDREST order?: No Is patient medically & hemodynamically stable?: Yes Consult to Paper Folding Machine Operator [CONS] Routine Reason for SW Consult: need placement 06/15/18 17:56 Consult to Nutrition [CONS] Routine Comment: Consulting Provider: NUTRITION Reason for Dietary Consult: PO Supplementation 06/15/18 18:20 Consult to Surgery [CONS] Routine Consulting Provider: Surgery [facility] Reason for Consult: Colonic mass..consulted by [facility] attending Call Completed: Yes - Constitutional Vitals: Temp Pulse Resp BP Pulse Ox 98.7 F 60 18 132/75 94 06/19/18 11:04 06/19/18 11:04 06/19/18 11:04 06/19/18 11:04 06/19/18 11:04 General appearance: Present: cooperative, A&O X 3, answers questions appropriately Exam: Looks very weak and lethargic Gen: Alert, awake, Oriented to time,place and person Chest: Diminished breath sounds B/L, No wheezing, No crackles, No rales Heart: S1S2+ bradycardia, No murmurs Abd: Soft, NT, BS +, No organomegaly Ext: No edema, pulses are palpable, No calf tenderness Neuro : Benign findings Skin: No rash. - Patient Status Disposition: Home Health Service Condition: Good Overall status at discharge: patient is back to baseline - Ambulatory Orders Ambulatory Orders: XR barium enema w air [XR] Time Frame: 1 Week, Facility: [facility], Location: Radiology - Discharge Instructions Follow Up With: Maryan Quinonez CNP [Primary Care Provider] - Asad Moreira DO [Partnered Physician] - - Diet and Activity Activity: ambulate only with your walker, increase activity as tolerated, wear oxygen at night Diet: low salt diet - VTE Documentation of Mechanical Device: Intermittent pneumatic compression device
--- NOTE | 2018-06-19 13:35 | Physician Discharge Referral ---
Home Health/Hosp Referral Info Transfer to: Home Health Provider in Charge Post Discharge: PCP - Diagnosis (1) Colonic mass Status: Inactive (2) Bradycardia Status: Acute (3) Failure to thrive Status: Acute (4) Paroxysmal atrial flutter Status: Acute (5) Anorexia Status: Inactive (6) Weight loss Status: Inactive (7) Hypertension Status: Chronic (8) Hypothyroidism Status: Chronic (9) Parkinson disease Status: Acute - Respiratory Orders Smoking Cessation: Smoking cessation has been advised. For more information, call the [place] Tobacco Quit Line at 5-788-POSY-NOW. - Services Needed Following services are medically necessary services: Nursing, Physical Therapy, Occupational Therapy - Transfer Medications Prescriptions: Dronabinol [Marinol] 2.5 mg PO BID 30 Days #60 capsule Home Medications: Divalproex (24 HR) [Depakote ER (24 HR)] 1,000 mg PO HS 03/23/16 [History] Divalproex (24 HR) [Depakote ER (24 HR)] 250 mg PO HS 03/23/16 [History] Levothyroxine [Synthroid] 25 mcg PO 0630 03/23/16 [History] Omeprazole 40 mg PO DAILY 03/23/16 [History] Ascorbate Calcium [Vitamin C] 250 mg PO BID 11/01/17 [History] Cyanocobalamin (Vitamin B-12) [Vitamin B12] 1,000 mcg PO DAILY #30 tablet [Rx] Carbidopa/Levodopa [Carbidopa-Levodopa 25-100 Tab] 1 tab PO QID 06/15/18 [ History] Quetiapine Fumarate [Seroquel] 100 mg PO HS 06/15/18 [History] Rivaroxaban [Xarelto] 20 mg PO 1700 06/15/18 [History] Latanoprost [Xalatan] 2.5 ml BOTH EYES DAILY 06/16/18 [History] Lovastatin [Mevacor] 20 mg PO HS 06/16/18 [History] Montelukast [Singulair] 10 mg PO DAILY 06/16/18 [History] Dronabinol [Marinol] 2.5 mg PO BID 30 Days #60 capsule 06/19/18 [Rx] Allergies/Adverse Reactions: 3 Allergy/AdvReac Type Severity Reaction Status Date / Time latex Allergy Rash Verified 06/15/18 13:59 Penicillins Allergy Difficulty Verified 06/15/18 13:59 Breathing ivp dye Allergy See Uncoded 06/15/18 13:59 Comments Certification: Further, I certify that my clinical findings support that this patient is homebound (i.e. absences from home require considerable and taxing effort and are for medical reasons or [employer] services or infrequently or short duration when for other reasons) because: Homebound Reason: Patient requires assistance of a person or device to safely leave home Attestation: My signature below is to certify that this patient is under my care and that I, or nurse practitioner, or a physician's academic assistant working with me, has a face-to -face encounter with this patient.
[2018-06-19 14:53] VITALS: BP 119/69
--- NOTE | 2018-06-19 17:05 | Electrocardiograph Report ---
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
== END 2018-06-19 18:40 | disposition home health service (06) | DRG 375 ==
LOC: 3ANU
PROVIDERS: ADMIT Internal Medicine; ATTEND Internal Medicine
PROC: ENDOCBX (2018-06-17 10:30)